=== PATIENT | male | born 1960 ===

== ENCOUNTER → 2020-04-08 14:00 | Outpatient (BNVA) | payer MEDICAID, SELFPAY | PROVIDERS: PCP Internal Medicine Geriatric Medicine; Referring Provider Internal Medicine Geriatric Medicine; Visit Provider Urology | DX: Z76.89 Persons encountering health services in other specified circumstances (principal) | CPT/HCPCS: 99202 ==

== ENCOUNTER → 2020-05-20 13:25 | Outpatient (BNVA) | payer MEDICAID, SELFPAY | PROVIDERS: PCP Internal Medicine Geriatric Medicine; Referring Provider Internal Medicine Geriatric Medicine; Visit Provider Nurse Practitioner | DX: Z76.89 Persons encountering health services in other specified circumstances (principal) ==

== ENCOUNTER → 2020-09-16 13:15 | Outpatient (BNVA) | payer MEDICAID, SELFPAY | PROVIDERS: PCP Internal Medicine Geriatric Medicine; Visit Provider Nurse Practitioner ==

== ENCOUNTER → 2022-01-28 14:04 | Outpatient (BNVA) | payer MEDICAID, SELFPAY | PROVIDERS: PCP Internal Medicine Geriatric Medicine; Visit Provider Urology | DX: R32 Unspecified urinary incontinence (principal); N52.9 Male erectile dysfunction, unspecified; N41.9 Inflammatory disease of prostate, unspecified | CPT/HCPCS: 51798; 99212 ==

== ENCOUNTER 2022-02-11 06:40 | Emergency (ER) | payer MEDICAID, SELFPAY ==
--- NOTE | ~2022-02-11 | CT_ITS ---
EXAMINATION: CT ABDOMEN AND PELVIS WITHOUT CONTRAST CLINICAL INFORMATION: Nausea and vomiting, distention and pain COMPARISON: Ultrasound 08/07/2017 TECHNIQUE: Multidetector volumetric imaging was performed from the superior aspect of the liver through the pubic symphysis. Sagittal and coronal reformatted images were obtained on the technologist's workstation. This CT examination was performed using dose optimization techniques as appropriate, variously including the following: *Automated exposure control *Adjustment of mA and/or kV according to patient size (this includes techniques or standardized protocols for targeted exams where dose is matched to indication/reason for exam; i.e. extremities or head) *Use of iterative reconstruction technique DLP: 497 mGy-cm FINDINGS: LUNG BASES: The visualized lung bases are unremarkable. LIVER, GALLBLADDER, AND BILIARY TREE: The liver is normal in size, shape, and attenuation. No focal hepatic lesion or biliary ductal dilatation is present. The gallbladder is unremarkable with no evidence of radiopaque gallstones, gallbladder wall thickening, or obvious pericholecystic inflammatory changes. PANCREAS: Unremarkable. SPLEEN: Incidental splenule. ADRENAL GLANDS: Unremarkable. KIDNEYS AND URETERS: The kidneys are normal in size, shape, and attenuation. No hydronephrosis, hydroureter, or calculi seen. No perinephric stranding. BLADDER: Unremarkable. GASTROINTESTINAL TRACT: The small and large bowel are notable for extensive diverticulosis without acute inflammatory changes. No obstruction. No fluid collections.. The appendix is unremarkable. ABDOMINAL WALL: No significant hernia is appreciated. Small fat-containing inguinal hernias bilaterally noted. LYMPH NODES: Normal. VASCULAR: Unremarkable. PELVIC VISCERA: Moderate prostamegaly. OSSEOUS STRUCTURES: Unremarkable. CT/CT abdomen pelvis wo IV con IMPRESSION: No significant abnormality. No obstruction. Fleischner guidelines were followed.
--- NOTE | 2022-02-11 06:44 | ECG_ITS ---
Test Reason : chest pain Blood Pressure : / mmHG Vent. Rate : 052 BPM Atrial Rate : 052 BPM P-R Int : 140 ms QRS Dur : 080 ms QT Int : 442 ms P-R-T Axes : 061 044 066 degrees QTc Int : 411 ms Sinus bradycardia Otherwise normal ECG When compared with ECG of 14-DEC-2018 12:22, Heart rate has decreased Referred By: Generic ED Physician Electronically Signed By:ZEYNEP TELLO
[2022-02-11 07:10] VITALS: BP 129/96; PULSE 59; RESP 19; TEMP 36.6; O2SAT 98; BMI 22.6
[2022-02-11 08:27] VITALS: BP 122/88; PULSE 58; RESP 17; TEMP 36.7; O2SAT 99
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
[2022-02-11] MEDS: 0.9 % Sodium Chloride 1,000 ML 999 ML IV (08:46)
[2022-02-11 08:47] LABS: MANUAL DIFF FLAG NO
[2022-02-11] MEDS: ondansetron HCL 4 MG/2 ML VIAL IVPUSH (08:47)
[2022-02-11] MEDS: Ketorolac Tromethamine 15 MG/ML VIAL 30 MG IVPUSH (08:47)
[2022-02-11 08:49] LABS: Basophils Percent Auto 0.4 % (0-2); Eosinophils Absolute Auto 0.2 X10*3/uL (0.0-0.4); Eosinophils Percent Auto 3.2 % (0-4); Imm Gran Abs Auto 0.04 X10*3/uL (0.00-0.03); Imm Gran Pct Auto 0.6 % (0.0-0.4); Lymphocytes Absolute Auto 2.3 X10*3/uL (1.2-4.9); Lymphocytes Percent Auto 31.7 % (20-40); Mean Corpuscular HGB Conc 32.5 g/dl (31.0-36.0); Mean Corpuscular Hemoglobin 25.7 pg (27.0-33.0); Mean Corpuscular Volume 79.1 fL (80.0-98.0); Mean Platelet Volume 10.1 fL (9.4-12.4); Monocytes Absolute Auto 0.6 X10*3/uL (0.1-1.2); Monocytes Percent Auto 8.8 % (2-11); Neutrophils Percent Auto 55.3 % (45-73); Platelet Count 213 X10*3/uL (160-400); Red Blood Count 5.06 X10*6/uL (4.60-5.80); Red Cell Distribution Width 12.7 % (11.0-16.0); White Blood Count 7.2 X10*3/uL (4.8-10.8)
[2022-02-11 08:59] LABS: Partial Thromboplastin Time 27.8 SEC (26.0-36.4)
[2022-02-11 09:08] LABS: Alanine Aminotransferase 66 U/L (0-40); Alkaline Phosphatase 99 U/L (39-117); Anion Gap 16 (12-20); Aspartate Amino Transferase 32 U/L (5-37); Bilirubin Total 0.3 mg/dL (0.0-1.0); Blood Urea Nitrogen 18 mg/dL (9-16); Calcium 8.9 mg/dL (8.4-10.2); Carbon Dioxide 23 mmol/L (22-29); Chloride 106 mmol/L (96-108); Creatinine Clr Calc Pharmacy 77.6; Estimated Glomerular Filt Rate > 60; Glucose Random 113 mg/dL (60-115); Lipase 37 U/L (8-78); Potassium 4.6 mmol/L (3.3-5.1); Sodium 140 mmol/L (135-145); Total Protein 6.7 g/dL (6.5-8.0)
[2022-02-11 10:10] VITALS: BP 115/75; PULSE 54; RESP 16; TEMP 36.3; O2SAT 100
[2022-02-11 10:41] LABS: Appearance Urine Clear; Color Urine Yellow; Glucose Urine UA Negative (Negative); Leukocyte Esterase Urine Trace (Negative); Nitrite Urine Negative (Negative); PH 5.5 (5.0-9.0); UMIC TRIGGER UACC YES; Urine Blood Negative (Negative); Urine Ketones Negative (Negative); Urine Protein Negative (Neg-Trace)
[2022-02-11 10:44] LABS: Bacteria Urine None Seen (None Seen); Hyaline Casts Urine 0-2 /LPF (0-2); RBC Urine 0-2 /HPF (0-2); Squamous Epithelial Cell Urine 0-2 /HPF (0-2); WBC Urine 0-5 /HPF (0-5)
== END 2022-02-11 11:18 | disposition home or self-care (01) ==
PROVIDERS: Emergency Provider Emergency Medicine Emergency Medical Services; PCP Internal Medicine Geriatric Medicine
DX: K21.00 Gastro-esophageal reflux disease with esophagitis, without bleeding (principal); K29.70 Gastritis, unspecified, without bleeding; R10.13 Epigastric pain; R11.2 Nausea with vomiting, unspecified
CPT/HCPCS: 36415; 74176; 80053; 81001; 83690; 85025; 85610; 85730; 93005; 96361; 96374; 96375; 99284; 99285; J1885; J2405

== ENCOUNTER 2023-06-22 10:26 | Outpatient (REF) | payer MEDICAID, SELFPAY ==
[2023-06-22 11:35] LABS: MANUAL DIFF FLAG NO
[2023-06-22 11:37] LABS: Basophils Absolute Auto 0.1 X10*3/uL (0.0-0.2); Basophils Percent Auto 0.8 % (0-2); Eosinophils Absolute Auto 0.1 X10*3/uL (0.0-0.4); Hematocrit 44.7 % (42.0-52.0); Hemoglobin 14.4 g/dl (14.0-18.0); Imm Gran Abs Auto 0.02 X10*3/uL (0.00-0.03); Imm Gran Pct Auto 0.3 % (0.0-0.4); Lymphocytes Absolute Auto 1.9 X10*3/uL (1.2-4.9); Lymphocytes Percent Auto 31.4 % (20-40); Mean Corpuscular HGB Conc 32.2 g/dl (31.0-36.0); Mean Corpuscular Volume 80.7 fL (80.0-98.0); Mean Platelet Volume 10.8 fL (9.4-12.4); Monocytes Absolute Auto 0.6 X10*3/uL (0.1-1.2); Monocytes Percent Auto 10.3 % (2-11); Neutrophils Absolute Auto 3.4 x10*3/uL (2.0-8.3); Neutrophils Percent Auto 55.2 % (45-73); Platelet Count 206 X10*3/uL (160-400); Red Blood Count 5.54 X10*6/uL (4.60-5.80); Red Cell Distribution Width 12.9 % (11.0-16.0); White Blood Count 6.1 X10*3/uL (4.8-10.8)
[2023-06-22 11:54] LABS: Alanine Aminotransferase 82 U/L (0-40); Albumin Level 4.5 g/dL (3.5-5.0); Alkaline Phosphatase 121 U/L (39-117); Anion Gap 14 (12-20); Aspartate Amino Transferase 27 U/L (5-37); Bilirubin Total 0.8 mg/dL (0.0-1.0); Blood Urea Nitrogen 17 mg/dL (9-16); Calcium 9.6 mg/dL (8.4-10.2); Carbon Dioxide 29 mmol/L (22-29); Chloride 101 mmol/L (96-108); Cholesterol 219 mg/dL (<200); Estimated Glomerular Filt Rate > 60; Glucose Random 93 mg/dL (60-115); HDL Cholesterol 45 mg/dL (>40); LDL Cholesterol Calculated 133 mg/dL (<100); Sodium 140 mmol/L (135-145); Total Protein 7.6 g/dL (6.5-8.0); Triglycerides 209 mg/dL (<150)
[2023-06-22 12:10] LABS: TSH reflex Free T4 1.95 uIU/mL (0.32-4.0)
== END 2023-06-22 10:27 | disposition home or self-care (01) ==
LOC: HO.HHCL 10:26
PROVIDERS: Visit Provider Internal Medicine Geriatric Medicine
DX: R63.4 Abnormal weight loss (principal); Z79.899 Other long term (current) drug therapy
CPT/HCPCS: 36415; 80053; 80061; 84443; 85025

== ENCOUNTER 2023-10-06 10:36 | Outpatient (REF) | payer MEDICAID, SELFPAY ==
[2023-10-06 12:28] LABS: Alanine Aminotransferase 40 U/L (0-40); Albumin Level 4.4 g/dL (3.5-5.0); Alkaline Phosphatase 101 U/L (39-117); Anion Gap 15 (12-20); Aspartate Amino Transferase 24 U/L (5-37); Bilirubin Total 0.7 mg/dL (0.0-1.0); Blood Urea Nitrogen 14 mg/dL (9-16); Calcium 9.8 mg/dL (8.4-10.2); Carbon Dioxide 25 mmol/L (22-29); Chloride 104 mmol/L (96-108); Estimated Glomerular Filt Rate > 60; Glucose Random 98 mg/dL (60-115); Potassium 4.1 mmol/L (3.3-5.1); Sodium 140 mmol/L (135-145); Total Protein 7.7 g/dL (6.5-8.0)
[2023-10-06 12:30] LABS: Prostate Specific Antigen 4.96 ng/mL (<0.05-4.0)
[2023-10-09 08:28] LABS: HBS Num1 16.27 mIU/mL (0-7.99); HBc Num1 0.06 S/CO (0.00-0.79); HBsAGNum1 0.29 S/CO (0.00-0.99); Hepatitis B Core Antibody Nonreactive (Nonreactive); Hepatitis B Surface Antigen Negative (Negative); ~HepC Num1 0.15 S/CO (0.00-0.79); ~Hepatitis B Surface Antibody REACTIVE (Nonreactive); ~Hepatitis C Antibody Nonreactive (Nonreactive)
[2023-10-09 08:46] LABS: Hepatitis A Antibody IgG REACTIVE (Nonreactive); ~Hepatitis A Antibody IgG 4.13 S/CO (0.00-0.99)
== END 2023-10-06 10:37 | disposition home or self-care (01) ==
LOC: HO.HHCL 10:36
PROVIDERS: Visit Provider Internal Medicine Geriatric Medicine
DX: N40.1 Benign prostatic hyperplasia with lower urinary tract symptoms (principal); R35.1 Nocturia; R74.01 Elevation of levels of liver transaminase levels
CPT/HCPCS: 36415; 80053; 84153; 86704; 86706; 86708; 86803; 87340

== ENCOUNTER 2024-03-04 18:19 | Outpatient (REF) | payer MEDICAID, SELFPAY ==
[2024-03-04 18:24] LABS: Appearance Urine Clear; Color Urine Yellow; Glucose Urine UA Negative (Negative); Leukocyte Esterase Urine Negative (Negative); Nitrite Urine Negative (Negative); PH 7.5 (5.0-9.0); Urine Blood Negative (Negative); Urine Ketones Negative (Negative); Urine Protein Negative (Neg-Trace)
[2024-03-04 18:30] LABS: Bacteria Urine None Seen (None Seen); Hyaline Casts Urine 0-2 /LPF (0-2); RBC Urine 0-2 /HPF (0-2); Squamous Epithelial Cell Urine 0-2 /HPF (0-2); WBC Urine 0-5 /HPF (0-5)
== END 2024-03-04 18:20 | disposition home or self-care (01) ==
LOC: HO.HHCLNP 18:19
PROVIDERS: Visit Provider Internal Medicine
DX: R39.9 Unspecified symptoms and signs involving the genitourinary system (principal)
CPT/HCPCS: 81001

== ENCOUNTER 2024-04-18 08:34 | Outpatient (REF) | payer MEDICAID, SELFPAY ==
[2024-04-18 11:56] LABS: Prostate Specific Antigen 5.82 ng/mL (<0.05-4.0)
== END 2024-04-18 08:35 | disposition home or self-care (01) ==
LOC: HO.HHCL 08:34
PROVIDERS: Visit Provider Internal Medicine Geriatric Medicine
DX: Z12.5 Encounter for screening for malignant neoplasm of prostate (principal); R97.20 Elevated prostate specific antigen [PSA]
CPT/HCPCS: 36415; 84153

== ENCOUNTER 2024-05-01 14:37 | Outpatient (AMB) | payer MEDICAID, SELFPAY ==
--- NOTE | 2024-05-01 15:15 | A.OFFVIS_ITS ---
Intake Visit Reasons: Elevated PSA Intake Note: Patient is present for ELEVATED PSA Urology Medication:NONE Antibiotic Allergy:NONE Blood Thinner:NONE Lace Finisher Required: No Allergies No Known Allergies Allergy (Verified 05/01/24 15:15) HPI Comments Details: Jonathan is a pleasant male. He is a patient of Dr. Simeon. He presents for the following urologic issues - increasing incontinence - pelvic pressure - erectile dysfunction Khmer translation provided by qualified medical information specialist Continue good effect from tadalafil Recent elevated PSA 04/21 5.8 Known prior prostatitis Feels he has recurrent symptoms Prostatitis medications provided Four month follow-up repeat PSA Prostatitis Pelvic pressure 03/2020 TABITHA soft boggy prostate consistent with prostatitis Prescriptions provided for management Erectile dysfunction Able to obtain but could not maintain erection Failed on demand medications None known trial of daily tadalafil PFSH Surgical History History of esophagogastroduodenoscopy (EGD) History of surgery of head Hx of colonoscopy Family History Father Cancer Mother Cancer Social History Household Members: Spouse and Children Alcohol intake: current Alcohol intake frequency: does not drink Current occupational status: disabled Review of Systems Const Denies chills and Denies fever(s) Card Reports no additional complaints and Denies syncope Resp Denies cough GI Denies abdominal pain and Denies heartburn Reports as per HPI and Denies change in libido Neuro Denies syncope Psych Denies change in libido Endo Denies change in libido Physical Exam Const General: cooperative, healthy appearing, comfortable and no acute distress Orientation/consciousness: patient oriented x3 HEENT Face and sinus: Yes normal facial exam Mouth: moist mucous membranes Neck Neck: Yes normal visual inspection, Yes full ROM and Yes trachea midline Chest Chest palpation & inspection: normal inspection of the chest Resp Effort & Inspection: normal respiratory effort, able to speak in complete sentences and no respiratory distress GI Inspection: Yes normal to inspection Back/Spine/Pelvis Cervical Spine: normal cervical lordosis Thoracic/Lumbar Spine: thoracic and lumbar spine normal to inspection Skin General skin exam: no rashes or lesions noted Neuro General: patient oriented x3, gait normal, tone normal and moves all extremities Extrem General: Yes normal to inspection and Yes capillary refill normal Assessment & Plan Assessment & Plan (1) Prostatitis: Code(s): N41.9 - Inflammatory disease of prostate, unspecified Category: Medical (2) Erectile dysfunction: Code(s): N52.9 - Male erectile dysfunction, unspecified Category: Medical Plan Four month follow-up PSA office Treat for prostatitis Refill of erectile dysfunction medications Orders: Orders PSA,Total (Free>4and<10) 4 Months N41.9 - Inflammatory disease of prostate, unspecified Medications: New sildenafil administer 60 minutes before intended activity 100 mg PO ONCE 30 days PRN 30 tabs 1RF sexual activity E11.69 - Type 2 diabetes mellitus with other specified complication, N52.1 - Erectile dysfunction due to diseases classified elsewhere, N52.9 - Male erectile dysfunction, unspecified Patient Instructions: Imaging studies, laboratory and physical exam results were discussed and reviewed in detail. No major barriers to patient understanding were identified. An opportunity to ask questions regarding the treatment plan was provided. All questions were answered. The patient expressed understanding and agreement with the above treatment plan. The patient is aware they should contact our office by phone for worsening of their current condition or the appearance of new urologic symptoms. Compliance is encouraged with any medications and followup testing that is ordered. It is a privilege to participate in the urologic care of your patient. If you have any questions or concerns regarding treatment for the above conditions, or other urologic issues, please do not hesitate to contact me. The office telephone contact is [phone]. This note is constructed using voice recognition software. While every effort has been made to ensure accuracy dental technician instructor errors may have been included. Yours sincerely, Dr Devin Baxter MD, [facility] - Urology Providers of Expert, Compassionate Care for the Genitourinary System Coding Level of Care Code Est Pt Level 4 (40817) Diagnoses Prostatitis N41.9 Erectile dysfunction N52.9
== END 2024-05-01 16:00 | disposition home or self-care (01) ==
PROVIDERS: PCP Internal Medicine Geriatric Medicine; Visit Provider Urology
DX: N41.9 Inflammatory disease of prostate, unspecified (principal); N52.9 Male erectile dysfunction, unspecified
CPT/HCPCS: 99214

== ENCOUNTER → 2024-05-01 14:37 | Outpatient (BNVA) | payer MEDICAID, SELFPAY | PROVIDERS: PCP Internal Medicine Geriatric Medicine; Visit Provider Urology | DX: N41.9 Inflammatory disease of prostate, unspecified (principal); N52.9 Male erectile dysfunction, unspecified | CPT/HCPCS: 99212 ==

== ENCOUNTER 2024-09-18 11:25 | Outpatient (REF) | payer MEDICAID, SELFPAY ==
--- OUTSIDE RECORDS SUMMARY | 2024-09-18 13:47 | XMS_ITS | Encounter Summary ---
Author Organization [facility] Address [address] [place] [address] Care Team Providers Care Certification And Selection Specialist Name Role Phone Name, Clayton NUNEZ Primary Care Provider [phone] Encounter Details Date Type Department Care Team ([facility] Contact Info) Description 06/20/2022 Orders Only [facility] [address] [place], [place] [phone] Linda Mendoza LPN Social History Tobacco Use Types Packs/Day Years Used Date Smoking Tobacco: Never Smokeless Tobacco: Never Depression Answer Date Recorded Patient Health Questionnaire-2 Score 2 06/15/2022 Sex and Gender Information Value Date Recorded Sex Assigned at Male 03/28/2022 10:17 AM EDT Legal Sex Male 10:17 AM EDT Gender Identity Male 03/28/2022 10:17 AM EDT Sexual Orientation Choose not to disclose 2021 10:17 AM EDT COVID-19 Exposure Response Date Recorded In the last 10 days, have yo u been in contact with someone who was confirmed or suspected to have Coronavirus/COVID-19? No / Unsure 06/15/2022 9:42 AM EST documented as of this encounter Plan of Treatment Upcoming Encounters Date Type Department Care Team ([facility] Contact Info) Description 11/13/2024 2:00 PM EDT Office Visit [facility]OM[facility] [address] [place], [place] [phone] Kyra Roldan, OD [address] [place] [address] documented as of this encounter Visit Diagnoses Not on filedocumented in this encounter Care Teams Certification And Selection Specialist Relationship Specialty Start Date End Date Name, MD Clayton [address] [place] [address] PCP - General Family Medicine 01/12/16 documented as of this encounter
--- OUTSIDE RECORDS SUMMARY | 2024-09-18 13:47 | XMS_ITS | Encounter Summary ---
Author Organization [employer] Address [address] [place] [address] Care Team Providers Care Termite Technician Name Role Phone Name, Clayton NUNEZ Primary Care Provider [phone] Reason for Visit * Reason Comments Med Refill Encounter Details Date Type Department Care Team ([facility] Contact Info) Description 05/20/2023 Refill [facility] [address] [place], [place] [phone] Name, MD Clayton [address] [place] [address] Social History Tobacco Use Types Packs/Day Years Used Date Smoking Tobacco: Never Smokeless Tobacco: Never Alcohol Use Standard Drinks/Week Comments Never 0 (1 standard drink = 0.6 oz pur e alcohol) Housing Stability Answer Date Recorded What is your housing situation today? I have jazielleeanna zepeda 03/21/[address] you li ve. Do you have problems with any of the following? None of the above 03/21/2023 Food Insecurity Answer Date Recorded Within the past 12 months, y ou worried that your food would run out before you got money to buy more: Never True 03/21/2023 Within the past 12 months,th e food you bought just didn't last and you didn't have enough money to get more: Never True Transportation Answer Date Recorded In the past 12 months, has l ack of transportation kept you from medical appts, meetings, work or from getting things needed for daily living? No 03/21/2023 Utilities Answer Date Recorded In the past 12 months, has t he electric, gas, oil or water company threatened to shut off services in your home? No 03/21/2023 Depression Answer Date Recorded Patient Health Questionnaire-2 Score 2 06/15/2022 Sex and Gender Information Value Date Recorded Sex Assigned at Male 03/28/2022 10:17 AM EDT Legal Sex Male 10:17 AM EDT Gender Identity Male 03/28/2022 10:17 AM EDT Sexual Orientation Choose not to disclose 2021 10:17 AM EDT documented as of this encounter Plan of Treatment Upcoming Encounters Date Type Department Care Team (Late st Contact Info) Description 11/13/2024 2:00 PM EDT Office Visit [facility] [address] [place], [place] [phone] Kyra Roldan, OD [address] [place] [address] documented as of this encounter Visit Diagnoses Not on filedocumented in this encounter Care Teams Termite Technician Relationship Specialty Start Date End Date Name, MD Clayton [address] [place] [id number] PCP - General Family Medicine 01/12/16 documented as of this encounter
--- OUTSIDE RECORDS SUMMARY | 2024-09-18 13:47 | XMS_ITS | Clinical Summary ---
Author Organization [employer] Address [address] [address] [facility] [address] [place] [address] Care Team Providers Care Environmental Studies Department Chair Name Role Phone Name, Clayton NUNEZ Primary Care Provider [phone] Allergies No known active allergies Medications Gaviscon Extra Strength 254-237.5 MG/5ML suspension TAKE 10 ML BY MOUTH FOUR TIMES DAILY NEEDED FOR HEARTBURN 2 Active buPROPion XL (Wellbutrin XL) 150 MG 24 hr tablet Take 150 mg by mouth in the morning. 2 Active mirtazapine (Remeron) 15 MG tablet Take 15 mg by mouth at bedtime. 2 Active perphenazine 4 MG tablet Take 4 mg by mouth in the morning. 2 Active sucralfate (Carafate) 1 GM/10ML suspension Take 10 mL by mouth every 6 (six) hours. 1 Active tamsulosin (Flomax) 0.4 MG 24 hr capsule TAKE 1 CAPSULE BY MOUTH DAILY 30 MINUTES AFTER THE SAME MEAL EVERY DAY 2 Active zolpidem (Ambien) 10 MG tablet Take 10 mg by mouth if needed at bedtime. 2 Active Pain Relief Extra Strength 500 MG tabletIndication s:Chronic low back pain, unspecified back pain laterality, unspecified whether sciatica present TAKE 1 OR 2 TABLETS BY MOUTH EVERY 6 HOURS NEEDED 100 tablet 2 3 Active polyethylene glycol, PEG, 3350 (GaviLAX) 17 GM/SCOOP powder MIX 17 GRAMS WITH WATER OR JUGO DE NARANJA AND DRINK THREE TIMES DAILY 510 g 2 3 Active omeprazole (PriLOSEC) [address] Fleming ns:Gastroesophag eal reflux disease, unspecified whether esophagitis present TAKE 1 CAPSULE BY MOUTH ONCE DAILY BEFORE A MEAL. 90 capsule 3 4 Active famotidine (Pepcid) 20 MG tabletIndication s:Gastroesophage al reflux disease, unspecified whether esophagitis present TAKE 1 TABLET BY MOUTH TWICE DAILY 180 tablet 3 4 Active loratadine (Claritin) 10 MG tablet Take 1 tablet (10 mg) by mouth Once per day. 30 tablet 4 Active fluticasone (Flonase) 50 MCG/ACT nasal spray ADMINISTER 2 SPRAYS INTO EACH NOSTRIL ONCE A DAY. SHAKE GENTLY. BEFORE FIRST USE PRIME PUMP. AFTER USE, CLEAN TIP AND REPLACE CAP. 48 g 4 Active Viagra 100 MG tablet TAKE 1 TABLET 1 HOUR BEFORE SEXUAL RELATIONS ONCE DAILY NEEDED. 10 tablet 1 4 Active atorvastatin (Lipitor) 20 MG tablet TAKE 1 TABLET BY MOUTH EVERY MORNING 90 tablet 3 4 Active nabumetone (Relafen) 500 MG tablet TAKE 1 TABLET BY MOUTH TWICE DAILY 60 tablet 1 5 Active Active Problems Problem Noted Date Diagnosed Date Foreign body sensation, right eye 03/04/2024 UTI symptoms 03/04/2024 Assessment & Plan (03/04/2024 1:56 PM EDT): UA and culture I will treat empirically with macrobid 100mg BID for 7 days Family history of prostate cancer 10/05/2023 Erectile dysfunction 06/15/2022 Gastro-esophageal reflux disease with esophagiti s 06/15/2022 Overview (06/21/2023): negative work up in the past including EGD and Barium swallow. EGD done [address] Leiva showed: POSTOPERATIVE DIAGNOSIS: Suggestion of esophageal spasm, question distal esophageal erythema versus grade 1 distal esophagitis. Biopsy showed in 2019: Esophagus, distal, biopsies: Squamous epithelium with mild reactive changes suggestive of chronic reflux. Pain in both testicles 06/15/2022 Pain in penis 06/15/2022 Benign prostatic hyperplasia 06/22/2018 Assessment & Plan (03/04/2024 1:57 PM EDT): I will refer patient to urology Anxiety 03/21/2017 Idiopathic scoliosis 03/21/2017 Chronic low back pain 01/27/2017 Pityriasis versicolor 01/12/2016 Impaired fasting glucose 02/29/2012 Vitamin D deficiency 02/29/2012 Severe recurrent major depressive disorder with psychosis 02/29/2012 Resolved Problems Problem Noted Date Diagnosed Date Resolved Date Dysphagia 01/27/2017 06/21/2023 Gastroesophageal reflux disease 02/29/2012 06/21/2023 Encounters Date Type Department Care Team Description 09/06/2024 10:30 AM EDT Office Visit [facility] [address] [place] [address] Clayton Simeon MD PE (physical exam), routine (Primary Dx); Elevated prostate specific antigen less than 10 ng/ml; High cholesterol; Screening for colon cancer; Blurred vision, bilateral; Encounter for immunization 09/06/2024 Telephone [facility] OPT[facility] [address] [place] [address] Kyra Roldan OD 09/06/2024 Travel 09/05/2024 Telephone [facility] [address] [place] [address] Mallory Mobley MA chartprep 08/30/2024 Patient Outreach [facility] [address] [place], [place] [phone] Clayton Simeon MD Pre-visit Planning (SDOH unable to reach LV ) 08/29/2024 Telephone [facility] [address] [place] [address] Clayton Simeon MD Lab Orders 08/09/2024 Population Health Risk Score [facility] [address] [phone] Provider, Population Health Generic 06/22/2024 Refill [facility] [address] [place] [address] Clayton Simeon MD from Last 3 Months Immunizations Name Administration Dates Next Due Hep A, Adult 09/25/2007,05/02/2007 Hep B, adult 05/08/2015, 5,02/04/2015,2007,09/25/2007,04/29/2007 Influenza injectable quadriv alent IIV4 with preservative 03/21/2017 Influenza injectable quadriv alent preservative free 04/11/2023,02/23/2022,06/22/2018 Influenza, IIV3, injectable 02/06/2014, 1 Influenza, Split (incl. rossy fied surface antigen) 05/10/2013,02/29/2012 Influenza, seasonal, injecta ble, preservative free 04/17/2024 Pfizer Covid-19 Vaccine 12+ 04/17/2024 Pneumococcal Conjugate PCV 20 09/06/2024 TD (adult), 2 Lf tetanus tox oid, preservative free, adsorbed 09/06/2005 Tdap 09/06/2024,09/08/2014 Social History Tobacco Use Types Packs/Day Years Used Date Smoking Tobacco: Never Smokeless Tobacco: Never Tobacco Cessation:Counseling Given: Not Answered Alcohol Use Standard Drinks/Week Comments Never 0 (1 standard drink = 0.6 oz pur e alcohol) Depression Answer Date Recorded Patient Health Questionnaire-9 Score 9 09/06/2024 Patient Health Questionnaire-9 Score 9 09/06/2024 Last PHQ-9: Questionnaire Data Not on file 0 09/06/2024 Housing Stability Answer Date Recorded What is your housing situation today? I have jaziel zepeda 09/06/[address] you li ve. Do you have problems with any of the following? None of the above 09/06/2024 Food Insecurity Answer Date Recorded Within the past 12 months, y ou worried that your food would run out before you got money to buy more: Never True 09/06/2024 Within the past 12 months,th e food you bought just didn't last and you didn't have enough money to get more: Never True 03/2025 Transportation Answer Date Recorded In the past 12 months, has l ack of transportation kept you from medical appts, meetings, work or from getting things needed for daily living? No 09/06/2024 Utilities Answer Date Recorded In the past 12 months, has t he electric, gas, oil or water company threatened to shut off services in your home? No 09/06/2024 Depression Answer Date Recorded Patient Health Questionnaire-2 Score 2 09/06/2024 Internet Access Answer Date Recorded Internet Access Q1 Yes 09/06/2024 Internet Access Q2 Not on file 09/06/2024 Sex and Gender Information Value Date Recorded Sex Assigned at Male 03/28/2022 10:17 AM EDT Legal Sex Male 10:17 AM EDT Gender Identity Male 03/28/2022 10:17 AM EDT Sexual Orientation Choose not to disclose 2021 10:17 AM EDT Last Filed Vital Signs Vital Sign Reading Time Taken Comments Blood Pressure 125/80 09/06/2024 10:53 AM EDT Pulse 68 09/06/2024 10:53 AM EDT Temperature 36.4 ??C (97.6 ??F) 09/06/2024 10:53 AM E DT Respiratory Rate 20 09/06/2024 10:53 AM EDT Oxygen Saturation 99% 09/06/2024 10:53 AM EDT Inhaled Oxygen Concentration - - Weight 72.6 kg (160 lb) 09/06/2024 10:53 AM EDT Height 167.6 cm (5' 6 ) 09/06/2024 10:53 AM EDT Body Mass Index 25.82 09/06/2024 10:53 AM EDT Plan of Treatment Upcoming Encounters Date Type Department Care Team (Late st Contact Info) Description 11/13/2024 2:00 PM EDT Office Visit [facility] [address] [place] [address] TarkaKyra, OD [address] [place] [address] Health Maintenance Due Date Last Done Comments CT Colonography 1962 Dental Prophylaxis 1962 Dental X-Ray: Bitewings 1962 FIT DNA/Cologuard 1962 FIT 1962 FOBT 1962 Sigmoidoscopy 1962 Zoster Vaccines (1 of 2) 2012 Colonoscopy 09/24/2022 09/24/2012 Colorectal Cancer Screening 09/24/2022 Dental Oral Exam 04/20/2024 10/18/2023, 08/17/2015 Alcohol/Substance Use Screening 09/06/2025 09/06/2024 Depression Screening 09/06/2025 09/06/2024, 09/07/19 SDOH Screening 09/06/2025 09/06/2024 Tobacco Screening 09/06/2025 09/06/2024 Dental X-Ray: Full Mouth 10/18/2026 10/18/2023, 07/28 Lipid Panel 06/22/2028 06/22/2023, 10/31/2022 DTaP/Tdap/Td Vaccines (3 - Td or Tdap) 09/06/2034 09/06/2024, 09/08/2014, 09/06/2005 RSV Patients and Patients Aged 60 years or older (1 - 1-dose 75+ series) 2037 Hepatitis A Vaccines Aged Out 09/25/2007, 05/02/20 07 No longer eligible based on patient's age to complete this topic HIV Screening Completed 09/08/2014 Hepatitis B Vaccines Completed 05/08/2015, 03/05/2015, 02/04/2015, Additional history exists Hepatitis C Screening Completed 10/06/2023, 015 COVID-19 Vaccine Completed 04/17/2024, , 09/05/2020 Influenza Vaccine Completed 04/17/2024, , 02/23/2022, Additional history exists Pneumococcal Vaccine: 50+ Years Completed 09/06/2024 HIB Vaccines Aged Out No longer eligi ble based on patient's age to complete this topic HPV Vaccines Aged Out No longer eligi ble based on patient's age to complete this topic IPV Vaccines Aged Out No longer eligi ble based on patient's age to complete this topic Meningococcal Vaccine Aged Out No emir pipe eligible based on patient's age to complete this topic RSV under 20 months Aged Out No longe r eligible based on patient's age to complete this topic Rotavirus Vaccines Aged Out No longer eligible based on patient's age to complete this topic Procedures Procedure Name Priority Date/Time Associated Diagnosis Comments PANORAMIC RADIOGRAPHIC IMAGE Routine 10/18/2023 8:00 AM EDT PERIODIC ORAL EVALUATION - ESTABLISHED PATIENT Routine 10/18/2023 8:00 AM EDT HEPATITIS C AB W/REFL TO HCV RNA, QN, PCR Routine 10/06/2023 10:45 AM EDT Transaminitis LIPID PANEL, STANDARD Routine 06/22/2023 10:30 AM EST On statin therapy HIV 1/2 ANTIGEN AND ANTIBODY Routine 09/08/2014 COLONOSCOPY Routine 09/24/2012 from Last 3 Months or Most Recently Relevant to Health Maintenance Results * Hepatitis C Antibody with Reflex to HCV, RNA, Quantitative, Real-Time PCR (10/06/2023 10:45 AM EDT) Hepatitis C Antibody Nonreactive Nonreactive [facility] Comment:Antibodies to HCV no t detected; does not exclude early acuteHCV infection. Blood Venous blood specimen / Unknown 10/06/2023 10:45 AM EDT 10/06/2023 11:26 AM EDT us Clayton Simeon MD LAB BLOOD ORDERABLES Final Resul t [facility] [address] [place] [phone] * (ABNORMAL) Lipid Panel, Standard (06/22/2023 10:30 AM EST) Triglycerides 209(H) <150 mg/dL [facility] Comment:Desirable Triglyceri de: less than 150 mg/dLBorderline High Triglyceride 150-199 mg/dLHigh Triglyceride: 200-499 mg/dLVery High Triglyceride: greater than or equal to 5OO mg/dL Cholesterol 219(H) <200 mg/dL [facility] Comment:Desirable Cholestero l: less than 200 mg/dLBorderline High Cholesterol: 200-239 mg/dLHigh Cholesterol: greater than 239 mg/dL LDL Cholesterol Calculated 133(H) <100 mg/dL [facility] Comment:Desirable LDL: less than 100 mg/dLNear Optimal/Above Optimal LDL: 110- 129 mg/dLBorderline High LDL: 130-159 mg/dLHigh LDL: 160-189 mg/dLVery High LDL: greater than or equal to 190 mg/dL HDL Cholesterol 45 >40 mg/dL [facility] Comment:Desirable HDL: great er than 40 mg/dL Note: This HDL assay may give artificially low results in patients with liver disease. Blood Venous blood specimen / Unknown 06/22/2023 10:30 AM EST 06/22/2023 11:29 AM EST us Clayton Simeon MD LAB BLOOD ORDERABLES Final Resul t [facility] [address] [place] [address] [phone] * HIV 1/2 Antigen and Antibody (09/08/2014) HIV Ag/Ab Nonreactive us Clayton Simeon MD HEALTH MAINTENANCE Final Result * Colonoscopy (09/24/2012) [address] [facility] Provider HEALTH MAINTENANCE Final Result from Last 3 Months or Most Recently Relevant to Health Maintenance Insurance [facility] C[facility] MEDICAID STAND ADULT Care Teams Environmental Studies Department Chair Relationship Specialty Start Date End Date Name, MD Clayton [address] [place], [place] [phone] PCP - General Family Medicine 01/12/16
[2024-09-18 14:09] LABS: PSA,Total (Free>4and<10) 7.83 ng/mL (0.00-4.00)
[2024-09-18 14:11] LABS: Alanine Aminotransferase 42 U/L (0-40); Albumin Level 4.3 g/dL (3.5-5.0); Alkaline Phosphatase 99 U/L (39-117); Anion Gap 9 (12-20); Aspartate Amino Transferase 23 U/L (5-37); Bilirubin Total 0.5 mg/dL (0.0-1.0); Blood Urea Nitrogen 20 mg/dL (9-16); Calcium 9.6 mg/dL (8.4-10.2); Carbon Dioxide 27 mmol/L (22-29); Chloride 106 mmol/L (96-108); Cholesterol 164 mg/dL (<200); Estimated Glomerular Filt Rate > 60; Glucose Random 90 mg/dL (60-115); HDL Cholesterol 34 mg/dL (>40); LDL Cholesterol Calculated 94 mg/dL (<100); Potassium 4.1 mmol/L (3.3-5.1); Sodium 138 mmol/L (135-145); Total Protein 7.3 g/dL (6.5-8.0); Triglycerides 181 mg/dL (<150)
[2024-09-19 10:19] LABS: Free Prostate Spec Ag 0.9 ng/mL; Percent Free Prostate Spec Ag 14 % (calc) (>25); Prostate Specific Ag Total 6.5 ng/mL (< OR = 4.0)
== END 2024-09-18 11:26 | disposition home or self-care (01) ==
LOC: HO.HHCL 11:25
PROVIDERS: Urology; Visit Provider Internal Medicine Geriatric Medicine
DX: Z00.00 Encounter for general adult medical examination without abnormal findings (principal); R97.20 Elevated prostate specific antigen [PSA]; E78.00 Pure hypercholesterolemia, unspecified; Z12.11 Encounter for screening for malignant neoplasm of colon; H53.8 Other visual disturbances; N41.9 Inflammatory disease of prostate, unspecified; Z23 Encounter for immunization
CPT/HCPCS: 36415; 80053; 80061; 84153; 84154

== ENCOUNTER 2024-11-01 11:12 | Outpatient (AMB) | payer MEDICAID, SELFPAY ==
--- NOTE | 2024-11-01 11:12 | A.OFFVIS_ITS ---
Intake Visit Reasons: 4 month follow up/ PSA Intake Note: Patient is present for 4m PSA Urology Medication:Sildenafil, Tadalafil Antibiotic Allergy:NONE Blood Thinner:NONE Correctional Supervisor Lieutenant Required: Yes Allergies No Known Allergies Allergy (Verified 11/01/24 11:13) Medication List - Last Reconciled 11/01/24 by Devin Baxter MD aluminum hydrox-magnesium carb 254-237.5 mg/5 mL (Gaviscon Extra Strength) 10 mL PO QID perphenazine 4 mg PO BID sildenafil 100 mg PO ONCE PRN 30 days tadalafil 5 mg PO DAILY 90 days HPI Comments Details: Jonathan is a pleasant male. He is a patient of Dr. Simeon. He presents for the following urologic issues - increasing incontinence - pelvic pressure - erectile dysfunction Telemedicine Evaluation 15 min Consultation [employer]har[employer] Video Wolof translation provided by qualified medical administrative specialist Repeat PSA elevated 6.5 free 14% PCPT 10% risk high-grade prostate cancer Recommend prostate biopsy Prostatitis Pelvic pressure 03/2020 TABITHA soft boggy prostate consistent with prostatitis Prescriptions provided for management PSA 04/21 5.8, 09/20 6.5 14% Erectile dysfunction Able to obtain but could not maintain erection Failed on demand medications None known trial of daily tadalafil PFSH Surgical History History of esophagogastroduodenoscopy (EGD) Hx of colonoscopy History of surgery of head Family History Father Cancer Mother Cancer Social History Household Members: Spouse and Children Alcohol intake: current Alcohol intake frequency: does not drink Current occupational status: disabled Review of Systems Const All systems reviewed & are unremarkable except as noted in HPI and below Reports no additional complaints Resp Reports no additional complaints GI Reports no additional complaints Reports as per HPI Musc Reports no additional complaints Physical Exam Telemedicine evaluation Appropriate responses Regular breathing rate and rhythm HEENT Head: Yes normal to inspection Ears: hearing grossly normal bilaterally Eyes General: appearance normal, both eyes and all related structures Neck Neck: Yes normal visual inspection Chest Chest palpation & inspection: normal inspection of the chest Resp Effort & Inspection: normal respiratory effort and able to speak in complete sentences Telehealth Telehealth Telehealth Platform: Telephone Location of provider rendering services: practice address Location of patient: address on file Patient Identification confirmed using: Name, : Yes Telehealth method: voice only Patient verbally consented to treatment: Yes Patient verbally consented to billing insurance company: Yes Patient informed of any privacy concerns related to visit: Yes Assessment & Plan Assessment & Plan (1) Erectile dysfunction: Code(s): N52.9 - Male erectile dysfunction, unspecified Category: Medical (2) Elevated PSA: Code(s): R97.20 - Elevated prostate specific antigen [PSA] Category: Medical Plan Risks and benefits regarding trans rectal ultrasound with prostate biopsy were discussed. Options of continued surveillance, no treatment and biopsy were offered. The risks include but are not limited to, urinary tract infection, sepsis, difficulty urinating, bleeding into the rectum or bladder that requires intervention and transfusion,and failure to diagnose prostate cancer. The patient understands the options and the risks involved. They wish to proceed. Printed information was provided to ensure he remains off anticoagulation for the appropriate length of time. He may require cardiology or PCP clearance. An antibiotic will be administered prior to, and following the procedure Medications: New levofloxacin take 1 tablet day before procedure, 1 tablet day of procedure and 1 tablet day after procedure 500 mg PO DAILY 3 days 3 tabs 0RF Patient Instructions: This note is constructed using voice recognition software. While every effort has been made to ensure accuracy pathology secretary/transcriptionist errors may have been included. Imaging studies, laboratory and physical exam results were discussed and reviewed in detail. No major barriers to patient understanding were identified. An opportunity to ask questions regarding the treatment plan was provided. All questions were answered. The patient expressed understanding and agreement with the above treatment plan. The patient is aware they should contact our office by phone for worsening of their current condition or the appearance of new urologic symptoms. Compliance is encouraged with any medications and followup testing that is ordered. It is a privilege to participate in the urologic care of your patient. If you have any questions or concerns regarding treatment for the above conditions, or other urologic issues, please do not hesitate to contact me. The office telephone contact is [phone]. Sincerely, Dr Devin Baxter MD, [facility] - Urology Compassionate Specialist Care for the Genitourinary System Coding Level of Care Code Tele Est Pt Level 4 (33412) Diagnoses Erectile dysfunction N52.9 Elevated PSA R97.20
== END 2024-11-01 13:52 | disposition home or self-care (01) ==
LOC: HO.HUSH 11:12
PROVIDERS: PCP Internal Medicine Geriatric Medicine; Visit Provider Urology
DX: N52.9 Male erectile dysfunction, unspecified (principal); R97.20 Elevated prostate specific antigen [PSA]
CPT/HCPCS: 99214

== ENCOUNTER → 2024-11-01 11:12 | Outpatient (BNVA) | payer MEDICAID, SELFPAY | PROVIDERS: PCP Internal Medicine Geriatric Medicine; Visit Provider Urology ==

== ENCOUNTER 2024-11-14 06:51 | Outpatient (REF) | payer MEDICAID, SELFPAY ==
--- NOTE | 2024-11-14 08:26 | W.PM.OPN ---
Operative Note Operative Note Date of Service: 11/14/24 Narrative: Preoperative diagnosis: Elevated PSA Postoperative diagnosis: Elevated PSA Procedure: 1. transrectal ultrasound measurement of prostate 2. transrectal ultrasound-guided pudendal nerve block 3. transrectal ultrasound-guided prostate biopsy 12 core Surgeon: Dr. Devin Baxter Anesthetic: 10cc 1% lidocaine Indications for procedure: Elevated PSA - 7.8 Counselling: Technical aspects, risks and benefits of proposed procedure were discussed in full. All questions have been answered, written consent has been obtained and patient agrees to proceed. Procedure: The patient was brought into the procedure area and placed in a left lateral decubitus position. Patient identity confirmed. Perioperative antibiotics confirmed. Safety pause time out performed. TABITHA was performed to dilate rectal sphincter Iodine 10cc with 60 cc gel was placed per rectum to reduce infection risk using a catheter tip syringe. 8 Hz Lauren rectal end-fire ultrasound probe was placed transrectally without difficulty. The prostate was visualized. Seminal vesicles were normal. Prostate margins were clearly demarcated. Bladder was seen superiorly. No cystic structures were noted No calcifications were noted at the surgical margin The prostate was otherwise homogeneous in nature The prostate was measured in 3 dimensions Prostatic Width: 4.9 cm Prostatic Height: 3.2 cm Urethral Length: 4.1 cm Total volume equals : 35 ml An ultrasound-guided pudendal nerve block was performed using a 22 gauge spinal needle in the sagittal plane. 4 cc of 1% lidocaine placed at the junction of each seminal vesicle and 2 cc placed at the apex of the prostate. A 12 core biopsy was performed with 6 cores each side using an 18 gauge prostate biopsy gun. Two cores each were taken at the prostate apex, mid and base on each side. Cores were spaced between lateral and medial aspects. Each core was examined as placed on specimen foam as part of quality assurance test program manager to ensure a minimum 1 cm of length and minimal discontinuity. He tolerated the procedure well with minimal rectal bleeding. Blood pressure remained stable following procedure. He was able to ambulate to bathroom after 5 minutes. Printed instructions regarding antibiotic use and common adverse events from the procedure such as low-grade temperature, potential infection and bleeding were given. He understands to call the office or go to an emergency room should any of these events arise. Pathology: 12 core prostate biopsy. CPT code 50830: Transrectal ultrasound; this is a diagnostic test for evaluation of the prostate and surrounding structures, looking for abnormalities or suspicious areas worrisome for cancer CPT code 47363: Biopsy, prostate; needle or punch, single or multiple, any approach CPT code 80075: Ultrasonic guidance for needle placement (eg, biopsy, aspiration, injection, localization device), imaging supervision and interpretation
[2024-11-14] MEDS: Lidocaine HCl 1 % MPF 5 ML VIAL 10 ML SUBCUT (08:32)
[2024-11-14] MEDS: levoFLOXacin 500 MG TABLET PO (08:33)
== END 2024-11-14 06:52 | disposition home or self-care (01) ==
LOC: HO.US 06:51
PROVIDERS: PCP Internal Medicine Geriatric Medicine; Visit Provider Urology
DX: R97.20 Elevated prostate specific antigen [PSA] (principal)
CPT/HCPCS: 55700; 76942; 88305; 88344; J2003

== ENCOUNTER → 2024-11-14 06:51 | Outpatient (BNV) | payer MEDICAID, SELFPAY | PROVIDERS: PCP Internal Medicine Geriatric Medicine; Visit Provider Urology | DX: R97.20 Elevated prostate specific antigen [PSA] (principal) | CPT/HCPCS: 55700; 76872; 76942 ==

== ENCOUNTER 2024-11-28 09:42 | Outpatient (AMB) | payer MEDICAID, SELFPAY ==
--- NOTE | 2024-11-28 09:43 | MHC.OFFVIS ---
Intake Visit Reasons: Prostate biopsy results Intake Note: Patient is present for prostate Bx results pathology : 11/14/24 Urology Medication:Sildenafil, Tadalafil Antibiotic Allergy:NONE Blood Thinner:NONE Chute Builder Required: Yes Accompanied by: Self / Same As Patient Allergies No Known Allergies Allergy (Verified 11/28/24 09:44) HPI Comments Details: Jonathan is a pleasant male. He is a patient of Dr. Simeon. He presents for the following urologic issues - increasing incontinence - pelvic pressure - erectile dysfunction Telemedicine Evaluation 15 min Consultation [facility] Video Somali translation provided by qualified medical receptionist Prostate biopsy normal Recommend daily finasteride to shrink prostate Prostatitis Pelvic pressure 03/2020 TABITHA soft boggy prostate consistent with prostatitis Prescriptions provided for management PSA 04/21 5.8, 09/20 6.5 14% Prostate Biopsy 11/20 NAD Erectile dysfunction Able to obtain but could not maintain erection Failed on demand medications None known trial of daily tadalafil PFSH Surgical History History of esophagogastroduodenoscopy (EGD) Hx of colonoscopy History of surgery of head Family History Father Cancer Mother Cancer Social History Household Members: Spouse and Children Alcohol intake: current Alcohol intake frequency: does not drink Current occupational status: disabled Review of Systems Const All systems reviewed & are unremarkable except as noted in HPI and below Reports no additional complaints Resp Reports no additional complaints GI Reports no additional complaints Reports as per HPI Musc Reports no additional complaints Physical Exam Telemedicine evaluation Appropriate responses Regular breathing rate and rhythm HEENT Head: Yes normal to inspection Ears: hearing grossly normal bilaterally Eyes General: appearance normal, both eyes and all related structures Neck Neck: Yes normal visual inspection Chest Chest palpation & inspection: normal inspection of the chest Resp Effort & Inspection: normal respiratory effort and able to speak in complete sentences Telehealth Telehealth Telehealth Platform: ShowMe VIdeoke Location of provider rendering services: practice address Location of patient: address on file Patient Identification confirmed using: Name, : Yes Telehealth method: video Patient verbally consented to treatment: Yes Patient verbally consented to billing insurance company: Yes Patient informed of any privacy concerns related to visit: Yes Minutes spent on Phone/Video with Pt.: 15 Assessment & Plan Assessment & Plan (1) Prostatitis: Code(s): N41.9 - Inflammatory disease of prostate, unspecified Category: Medical Plan Six-month follow-up PSA Orders: Orders Prostate Specific Antigen 6 Months N41.9 - Inflammatory disease of prostate, unspecified Medications: New finasteride 5 mg PO DAILY 90 tabs 1RF 90 days N13.8 - Other obstructive and reflux uropathy, N40.1 - Benign prostatic hyperplasia with lower urinary tract symptoms, N41.9 - Inflammatory disease of prostate, unspecified, R33.9 - Retention of urine, unspecified Patient Instructions: This note is constructed using voice recognition software. While every effort has been made to ensure accuracy assistant general manager errors may have been included. Imaging studies, laboratory and physical exam results were discussed and reviewed in detail. No major barriers to patient understanding were identified. An opportunity to ask questions regarding the treatment plan was provided. All questions were answered. The patient expressed understanding and agreement with the above treatment plan. The patient is aware they should contact our office by phone for worsening of their current condition or the appearance of new urologic symptoms. Compliance is encouraged with any medications and followup testing that is ordered. It is a privilege to participate in the urologic care of your patient. If you have any questions or concerns regarding treatment for the above conditions, or other urologic issues, please do not hesitate to contact me. The office telephone contact is [phone]. Sincerely, Dr Devin Baxter MD, [facility] - Urology Compassionate Specialist Care for the Genitourinary System Coding Level of Care Code Tele Est Pt Level 3 (20194) Complex EM visit Add On G2211 Diagnoses Prostatitis N41.9
--- OUTSIDE RECORDS SUMMARY | 2024-11-28 10:09 | XMS_ITS | Encounter Summary ---
Author Organization [employer] Address [address] [facility] 7 [place] [address] Care Team Providers Care Supervisor Broadloom Name Role Phone Name, Clayton NUNEZ Primary Care Provider [phone] Reason for Visit * Reason Comments Med Refill Encounter Details Date Type Department Care Team ([facility] st Contact Info) Description 05/20/2023 Refill [facility] MEDICINE [address] [place], [place] [phone] Name, MD Clayton [address] [place] [address] Social History Tobacco Use Types Packs/Day Years Used Date Smoking Tobacco: Never Smokeless Tobacco: Never Alcohol Use Standard Drinks/Week Comments Never 0 (1 standard drink = 0.6 oz pur e alcohol) Housing Stability Answer Date Recorded What is your housing situation today? I have jaziel zepeda 03/21/[address] you [...] t he electric, gas, oil or water [employer] threatened to shut off services in your [...] as of this encounter Plan of Treatment Not on file documented as of this encounter Visit Diagnoses Not on filedocumented in this encounter Care Teams Supervisor Broadloom Relationship Specialty Start Date End Date Name, MD Clayton [address] [place] [address] PCP - General Family Medicine 01/12/16 documented as of this encounter
== END 2024-11-28 10:29 | disposition home or self-care (01) ==
LOC: HO.HUSH 09:43
PROVIDERS: PCP Internal Medicine Geriatric Medicine; Visit Provider Urology
DX: N41.9 Inflammatory disease of prostate, unspecified (principal)
CPT/HCPCS: 99213

== ENCOUNTER 2025-03-13 19:39 | Emergency (ER) | payer MEDICAID, SELFPAY ==
[2025-03-13 20:18] VITALS: BP 127/68; PULSE 63; RESP 16; TEMP 35.9; O2SAT 99; BMI 23.5
[2025-03-13 20:32] LABS: MANUAL DIFF FLAG NO
[2025-03-13 20:35] LABS: Hematocrit 40.3 % (42.0-52.0); Hemoglobin 13.4 g/dl (14.0-18.0); Imm Gran Abs Auto 0.07 X10*3/uL (0.00-0.03); Imm Gran Pct Auto 0.9 % (0.0-0.4); Lymphocytes Absolute Auto 2.7 X10*3/uL (1.2-4.9); Mean Corpuscular HGB Conc 33.3 g/dl (31.0-36.0); Mean Corpuscular Hemoglobin 25.8 pg (27.0-33.0); Mean Corpuscular Volume 77.5 fL (80.0-98.0); NRBC Abs Auto 0.000 X10*3/uL (0.0-0.012); NRBC Pct Auto 0.0 /100WBC (0.0-0.2); Platelet Count 249 X10*3/uL (160-400); Red Blood Count 5.20 X10*6/uL (4.60-5.80); White Blood Count 8.0 X10*3/uL (4.8-10.8)
[2025-03-13 20:49] LABS: Alanine Aminotransferase 64 U/L (0-40); Albumin Level 4.7 g/dL (3.5-5.0); Alkaline Phosphatase 139 U/L (39-117); Anion Gap 10 (12-20); Aspartate Amino Transferase 40 U/L (5-37); Blood Urea Nitrogen 24 mg/dL (9-16); Calcium 9.5 mg/dL (8.4-10.2); Carbon Dioxide 22 mmol/L (22-29); Chloride 114 mmol/L (96-108); Creatinine Clr Calc Pharmacy 65.2; Estimated Glomerular Filt Rate > 60; Lipase 62 U/L (8-78); Potassium 3.9 mmol/L (3.3-5.1); Sodium 142 mmol/L (135-145); Total Protein 7.5 g/dL (6.5-8.0)
--- OUTSIDE RECORDS SUMMARY | 2025-03-13 21:33 | XMS_ITS | Encounter Summary ---
Author Organization [employer] Address [address] [facility] 7 [place] [address] Care Team Providers Care Lathe Sander Name Role Phone Name, Clayton NUNEZ Primary Care Provider [phone] Reason for Visit * Reason Comments Med Refill Encounter Details Date Type Department Care Team ([facility] st Contact Info) Description 05/20/2023 Refill [facility] MEDICINE [address] [place], [place] [phone] Name, MD Clayton [address] [place] [address] Social History Tobacco Use Types Packs/Day Years [...] t he electric, gas, oil or water [employer] threatened to shut off services in your [...] Care Team (Late st Contact Info) Description 05/15/2025 11:30 AM EST Office Visit [facility] MEDICINE [address] [place] [address] NameClayton MD [address] [place] [address] 06/06/2025 2:00 PM EST Office Visit [facility] OPTOMETRY [address] [place] [address] Kyra Roldan, OD [address] [place] [address] documented as of this encounter Visit Diagnoses Not on filedocumented in this encounter Care Teams Lathe Sander Relationship Specialty Start Date End Date NameClayton MD [address] [place] [phone] PCP - General Family Medicine 01/12/16 documented as of this encounter
--- OUTSIDE RECORDS SUMMARY | 2025-03-13 21:34 | XMS_ITS | Clinical Summary ---
Author Organization [employer] Address [address] [facility] 7 [place] [address] Care Team Providers Care Machine Stripper Cutter Name Role Phone Name, Clayton NUNEZ Primary Care Provider [phone] Allergies No known active allergies Medications Gaviscon [...] DRINK THREE TIMES DAILY 510 g 2 08/31/202 3 Active loratadine (Claritin) 10 MG tablet Take [...] TWICE DAILY 60 tablet 1 5 Active famotidine (Pepcid) 20 MG tabletIndication s:Gastroesophage al reflux disease, unspecified whether esophagitis present TAKE 1 TABLET BY MOUTH TWICE DAILY 180 tablet 3 5 Active omeprazole (PriLOSEC) [address] capsuleIndicatio ns:Gastroesophag eal reflux disease, unspecified whether esophagitis present TAKE 1 CAPSULE BY MOUTH EVERY DAY BEFORE A MEAL 90 capsule 3 5 Active dorzolamide-surinder lol (Cosopt) 2-0.5 % ophthalmic solutionIndicati ons: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 ([facility]) 02/29/2012 Resolved Problems Problem Noted Date Diagnosed Date Resolved Date Foreign body sensation, right eye 03/04/2024 11/15/2024 Dysphagia 01/27/2017 06/21/2023 Gastroesophageal reflux disease 02/29/2012 06/21/2023 Encounters Date Type Department Care Team Description 01/31/2025 Telephone [facility] MEDICINE [address] [place] [address] Name, MD Clayton Nurse Triage 01/30/2025 Telephone [facility] MEDICINE [address] [place] [address] Clayton Simeon MD Nurse Triage 01/10/2025 Telephone [facility] MEDICINE [address] [place] [address] Jaxon Bartlett [place] february recalls 01/03/2025 1:45 PM EDT Office Visit [facility] MEDICINE [address] [place] [address] Amanda Chance, LUCERO Acute otitis externa of left ear, unspecified type (Primary Dx); Cellulitis of auricle of left ear 01/03/2025 Travel 01/03/2025 Telephone [facility] MEDICINE [address] [place] [address] Name, MD Clayton Nurse Triage from Last 3 Months Immunizations Immunization Administration Dates Next Due Hep A, Adult [...] Types Packs/Day Years Used Date Smoking Tobacco: Former Cigarettes Passive Smoke Exposure: Past Smokeless Tobacco: Former Tobacco Cessation:Counseling Given: Not Answered Alcohol Use [...] Sign Reading Time Taken Comments Blood Pressure 138/86 01/03/2025 1:48 PM EDT Pulse 74 01/03/2025 1:48 PM EDT Temperature 36.9 C (98.4 F) 01/03/2025 1:48 PM EDT Respiratory Rate 16 01/03/2025 1:48 PM EDT Oxygen Saturation 98% 01/03/2025 1:48 PM EDT Inhaled Oxygen Concentration - - Weight 71.8 kg (158 lb 4 oz) 01/03/2025 1:48 PM EDT Height 167.6 cm (5' 6 ) 01/03/2025 1:48 PM EDT Body Mass Index 25.54 01/03/2025 1:48 PM EDT Plan of Treatment Upcoming Encounters Date Type Department Care Team (Late st Contact Info) Description 05/15/2025 11:30 AM EST Office Visit [facility] MEDICINE [address] [place] [phone] Name, MD Clayton [address] [place] [address] 06/06/2025 2:00 PM EST Office Visit [facility] OPTOMETRY [address] [place] [address] Kyra Roldan, OD [address] [place] [address] Health Maintenance Due Date Last Done Comments CT Colonography 1962 Dental Prophylaxis 1962 Dental X-Ray: Bitewings 1962 FIT DNA/Cologuard 1962 FIT 1962 FOBT 1962 Sigmoidoscopy 1962 Zoster Vaccines (1 of 2) 2012 Colonoscopy 09/24/2022 09/24/2012 Colorectal Cancer Screening 09/24/2022 Dental Oral Exam 04/20/2024 10/18/2023, 08/17/2015 Influenza Vaccine (#1) 2025 , 04/11/2023, 02/23/2022, Additional history exists Depression Monitoring 03/08/2025 09/06/2024, 025 Alcohol/Substance Use Screening 09/06/2025 09/06/2024 Disability Screening 09/06/2025 09/06/2024 SDOH Screening 09/06/2025 09/06/2024 Tobacco Screening 01/03/2026 01/03/2025 Dental X-Ray: Full Mouth 10/18/2026 10/18/2023, 07/28 Lipid Panel 09/18/2029 09/18/2024, 05/30, 10/31/2022 DTaP/Tdap/Td Vaccines (3 - Td or [...] 015 COVID-19 Vaccine Completed 04/17/2024, , 09/05/2020 Pneumococcal Vaccine: 50+ Years Completed 09/06/2024 HIB Vaccines Aged Out No longer eligi ble based on patient's age to complete this topic HPV Vaccines Aged Out No longer eligi ble based on patient's age to complete this topic IPV Vaccines Aged Out No longer eligi ble based on patient's age to complete this topic Meningococcal B Vaccine Aged Out No l onger eligible based on patient's age to complete [...] Procedure Name Priority Date/Time Associated Diagnosis Comments LIPASE Routine 03/13/2025 8:27 PM EDT COMPREHENSIVE METABOLIC PANEL Routine 03/13/2025 8:27 PM EDT CBC WITH AUTO DIFFERENTIAL Routine 03/13/2025 8:27 PM EDT LIPID PANEL, STANDARD Routine 09/18/2024 11:28 AM EDT PE (physical exam), routine Elevated prostate specific antigen less than 10 ng/ml High cholesterol Screening for colon cancer Blurred vision, bilateral Encounter for immunization PANORAMIC RADIOGRAPHIC IMAGE Routine 10/18/2023 8:00 AM EDT PERIODIC ORAL EVALUATION - ESTABLISHED PATIENT Routine 10/18/2023 8:00 AM EDT HEPATITIS C AB W/REFL TO HCV RNA, QN, PCR Routine 10/06/2023 10:45 AM EDT Transaminitis HM HIV 1/2 ANTIGEN AND ANTIBODY Routine 09/08/2014 HM COLONOSCOPY Routine 09/24/2012 from Last 3 Months or Most Recently Relevant to Health Maintenance Results * (ABNORMAL) CBC auto differential (03/13/2025 8:27 PM EDT) White Blood Count 8.0 4.8 - 10.8 X10*3/uL [facility] Red Blood Count 5.20 4.60 - 5.80 X10*6/uL [facility] Hemoglobin 13.4(L) 14.0 - 18.0 g/dl [facility] Hematocrit 40.3(L) 42.0 - 52.0 % [facility] Mean Corpuscular Volume 77.5(L) 80.0 - 98.0 fL [facility] Mean Corpuscular Hemoglobin 25.8(L) 27.0 - 33.0 pg [facility] Mean Corpuscular HGB Conc 33.3 31.0 - 36.0 g/dl [facility] Red Cell Distribution Width 13.8 11.0 - 16.0 % [facility] Platelet Count 249 160 - 400 X10*3/uL [facility] Mean Platelet Volume 10.3 9.4 - 12.4 fL [facility] Neutrophils Percent Auto 54.0 45 - 73 % [facility] Imm Gran Pct Auto 0.9(H) 0.0 - 0.4 % [facility] Lymphocytes Percent Auto 34.1 20 - 40 % [facility] Monocytes Percent Auto 7.2 2 - 11 % [facility] Eosinophils Percent Auto 2.9 0 - 4 % [facility] Basophils Percent Auto 0.9 0 - 2 % [facility] NRBC Pct Auto 0.0 0.0 - 0.2 /100WBC [facility] Neutrophils Absolute Auto 4.3 2.0 - 8.3 x10*3/uL [facility] Imm Gran Abs Auto 0.07(H) 0.00 - 0.03 X10*3/uL [facility] Lymphocytes Absolute Auto 2.7 1.2 - 4.9 X10*3/uL [facility] Monocytes Absolute Auto 0.6 0.1 - 1.2 X10*3/uL [facility] Eosinophils Absolute Auto 0.2 0.0 - 0.4 X10*3/uL [facility] Basophils Absolute Auto 0.1 0.0 - 0.2 X10*3/uL [facility] NRBC Abs Auto 0.000 0.0 - 0.012 X10*3/uL [facility] 03/13/2025 8:27 PM EDT 03/13/2025 8:31 PM EDT us Generic External Data Provider LAB BLOOD ORDERAB LES Final Result Performing Organization Address City/[facility]/ZIP Co de Phone Number [facility] [address] [place] [phone] * Lipase (03/13/2025 8:27 PM EDT) Pathologist [facility] Lipase 62 8 - 78 U/L [facility] 03/13/2025 8:27 PM EDT 03/13/2025 8:31 PM EDT Generic External Data Provider LAB BLOOD ORDERAB LES Final Result Performing Organization Address City/[facility]/ZIP Co de Phone Number [facility] [address] [place] [phone] * (ABNORMAL) Comprehensive Metabolic Panel (03/13/2025 8:27 PM EDT) [facility] Sodium 142 135 - 145 mmol/L [facility] Potassium 3.9 3.3 - 5.1 mmol/L [facility] Chloride 114(H) 96 - 108 mmol/L [facility] Carbon Dioxide 22 22 - 29 mmol/L [facility] Anion Gap 10(L) 12 - 20 [facility] Urea Nitrogen (BUN) 24(H) 9 - 16 mg/dL [facility] Creatinine, Serum 1.06 0.5 - 1.4 mg/dL [facility] Creatinine Clr Calc Pharmacy 65.2 [facility] Comment:eGFR (calculated fro m the MDRD study equation) and eCrCl(calculated from the Cockcroft-Gault equation) are based ondifferent parameters and may not yield comparable results.If eCrCl result is absurd, please check patient'sheight/weight. Estimated Glomerular Filt Rate >60 [facility] Comment:Chronic Kidney Disea se: Estimated GFR < 60 mL/min/1.37u3Uktnvk Kidney Disease: Estimated GFR < 15 mL/min/1.73m2 Glucose 117(H) 60 - 115 mg/dL [facility] Calcium 9.5 8.4 - 10.2 mg/dL [facility] Bilirubin, Total 0.5 0.0 - 1.0 mg/dL [facility] Aspartate Amino Transferase 40(H) 5 - 37 U/L [facility] Alanine Aminotransferase 64(H) 0 - 40 U/L [facility] Total Protein 7.5 6.5 - 8.0 g/dL [facility] Albumin Level 4.7 3.5 - 5.0 g/dL [facility] Alkaline Phosphatase 139(H) 39 - 117 U/L [facility] 03/13/2025 8:27 PM EDT 03/13/2025 8:31 PM EDT us Generic External Data Provider LAB BLOOD ORDERAB LES Final Result Performing Organization Address City/State/[facility] Co de Phone Number [facility] [address] [place] [phone] * (ABNORMAL) Lipid Panel, Standard (09/18/2024 11:28 AM EDT) Triglycerides 181(H) <150 mg/dL [facility] Comment:Desirable Triglyceri de: less than 150 mg/dLBorderline High Triglyceride 150-199 mg/dLHigh Triglyceride: 200-499 mg/dLVery High Triglyceride: greater than or equal to 5OO mg/dL Cholesterol 164 <200 mg/dL [facility] Comment:Desirable Cholestero l: less than 200 mg/dLBorderline High Cholesterol: 200-239 mg/dLHigh Cholesterol: greater than 239 mg/dL LDL Cholesterol Calculated 94 <100 mg/dL [facility] Comment:Desirable LDL: less than 100 mg/dLNear Optimal/Above Optimal LDL: 110- 129 mg/dLBorderline High LDL: 130-159 mg/dLHigh LDL: 160-189 mg/dLVery High LDL: greater than or equal to 190 mg/dL HDL Cholesterol 34(L) >40 mg/dL [facility] Comment:Desirable HDL: great er than 40 mg/dL Note: This HDL assay may give artificially low results in patients with liver disease. Blood Venous blood specimen / Unknown 09/18/2024 11:28 AM EDT 09/18/2024 1:08 PM EDT us Clayton Simeon MD LAB BLOOD ORDERABLES Final Resul t Performing Organization Address [facility] Co de Phone Number [facility] [address] [place] [phone] * Hepatitis C Antibody with Reflex to HCV, RNA, Quantitative, Real-Time PCR (10/06/2023 10:45 AM EDT) Hepatitis C Antibody Nonreactive Nonreactive [facility] Comment:Antibodies to HCV no t detected; does not exclude early acuteHCV infection. Blood Venous blood specimen / Unknown 10/06/2023 10:45 AM EDT 10/06/2023 11:26 AM EDT us Clayton Simeon MD LAB BLOOD ORDERABLES Final Resul t Performing Organization Address City/[facility] Co de Phone Number [facility] [address] [place] [phone] * HIV 1/2 Antigen and Antibody (09/08/2014) HIV Ag/Ab Nonreactive us Clayton Simeon MD HEALTH MAINTENANCE Final Result * Colonoscopy (09/24/2012) Colonoscopy performed us George Bingham MD HEALTH MAINTENANCE Final Result from Last 3 Months or Most Recently Relevant to Health Maintenance [place] [facility] ST[facility] ADULT Care Teams Machine Stripper Cutter Relationship Specialty Start Date End Date Name, MD Clayton [address] [place] [address] PCP - General Family Medicine 01/12/16
--- OUTSIDE RECORDS SUMMARY | 2025-03-13 21:34 | XMS_ITS | Encounter Summary ---
Author Organization [employer] Address [address] [place] [address], [place] [address] Care Team Providers Care Research Associate Molecular Biology Name Role Phone Name, Clayton NUNEZ Primary Care Provider [phone] Encounter Details Date Type Department Care Team (Late Contact Info) Description 06/20/2022 Orders Only [facility] PEDS [address] [place], [place] [phone] Linda Mendoza LPN Social History Tobacco Use [...] Encounters Date Type Department Care Team (Late Contact Info) Description 05/15/2025 11:30 AM EST Office Visit [facility] MEDICINE [address] [place] [address] [phone] Name, MD Clayton [address] [place] [phone] 06/06/2025 2:00 PM EST Office Visit [facility] OPTOMETRY [address] [place] [address] Kyra Roldan, OD [address] [place], [place] [phone] documented as of this encounter Visit Diagnoses Not on filedocumented in this encounter Care Teams Research Associate Molecular Biology Relationship Specialty Start Date End Date Name, MD Clayton [address] [place] [phone] PCP - General Family Medicine 01/12/16 documented as of this encounter
--- NOTE | 2025-03-13 21:56 | ED.GENADULT ---
HPI - General Adult General Chief complaint: Nausea/Vomiting/Diarrhea Stated complaint: vomiting ? acid reflux Time Seen by Provider: 03/13/25 21:55 Source: patient Mode of arrival: ambulatory Limitations: no limitations History of Present Illness ED Provider: Dr. Diaz HPI narrative: 64-year-old male presented hospital today for evaluation of difficulty swallowing. Patient has history of hypertension. Patient has been having an issue for the past year. However has been getting worse. He is also complaining of some intermittent epigastric pain. Denies any shortness of breath or chest pain currently. Patient stated he has trouble swallowing liquid and p.o. intake. Able to swallow saliva without any issues. Related Data Home Medications ?Medication ?Instructions ?Recorded ?Confirmed perphenazine 4 mg tablet 4 mg PO BID 04/08/20 11/01/24 Previous Rx's ?Medication ?Instructions ?Recorded aluminum hydrox-magnesium carb 254 10 ml PO QID dyspepsia #355 mL 02/11/22 mg-237.5 mg/5 mL oral suspension (Gaviscon Extra Strength) tadalafil 5 mg tablet 5 mg PO DAILY sexual activity 90 05/01/24 days #90 tabs sildenafil 100 mg tablet 100 mg PO ONCE PRN sexual activity 09/30/24 30 days #30 tabs levofloxacin 500 mg tablet 500 mg PO DAILY 3 days #3 tabs 11/01/24 finasteride 5 mg tablet 5 mg PO DAILY 90 days #90 tabs 11/28/24 omeprazole 20 mg capsule,delayed 20 mg PO DAILY 30 days #30 caps 03/14/25 release ondansetron 4 mg disintegrating 4 mg PO Q8H PRN nausea and 03/14/25 tablet vomiting #14 tabs Allergies Allergy/AdvReac Type Severity Reaction Status Date / Time No Known Allergies Allergy Verified 03/13/25 20:19 Review of Systems Review of Systems: Pertinent review of systems as mentioned in HPI. All other system otherwise negative. [facility] Past Medical History [facility] Narrative: Medical history as mentioned in HPI Surgical History History of esophagogastroduodenoscopy (EGD) Hx of colonoscopy History of surgery of head Family History Family History Father Cancer Mother Cancer Social History Social History Household Members: Spouse and Children Alcohol intake: current Alcohol intake frequency: does not drink Smoked in Last 30 Days: No Use of substances other than those prescribed or required for medical reasons: No Advance Directives: No Advance Directives Information Provided: No Current occupational status: disabled Physical Exam ED Exam Exam: General: Pleasant, no distress, interacting appropriately Head: Normacephalic, atraumatic ENT: oral mucosa moist, neck supple, no tracheal deviation Cardiovascular: regular rate, regular rhythm, no murmurs, rubbing, gallops Respiratory: CTAB, no wheeze, rales, rhonchi Gastrointestinal: Soft, non distended, non tender, non guarding Extremities: No limb pain or swelling, no calf tenderness Neurological: Awake and alert, no facial droop noted Skin: Warm and dry Psychiatric: Appropriate mood and thoughts Vital Signs: Vital Signs - 24 hr 03/13/25 20:18 03/13/25 22:19 Temperature 96.7 F L Pulse Rate 63 57 Respiratory Rate 16 18 Blood Pressure 127/68 113/64 Pulse Oximetry 99 97 Oxygen Delivery Method Room Air Room Air BMI result Body Mass Index 23.5 Medications Administered Discontinued Medications Generic Name Dose Route Start Last Admin Trade Name Freq PRN Reason Stop Dose Admin Al Hydroxide/Mg Hydroxide 30 ml 03/13/25 22:41 03/13/25 23:08 Magnesium Hydrox/Alum Hydrox 30 Ml Oral.Susp PO 03/13/25 22:42 30 ml ONCE ONE Administration Lidocaine HCl 15 ml 03/13/25 22:41 03/13/25 23:08 Lidocaine Hcl Viscous 2 % 15 Ml Solution MUCOUS MEM 03/13/25 22:42 15 ml ONCE ONE Administration Ondansetron HCl 4 mg 03/13/25 22:41 03/13/25 23:08 Ondansetron Odt 4 Mg Tab.Rapdis TRANSLINGU 03/13/25 22:42 4 mg ONCE ONE Administration Medical Decision Making Medical Decision Making MDM Narrative: foreign language interpreter was used for this encounter. 64-year-old male presented hospital today for evaluation of difficulty swallowing. We will plan to give patient some Zofran and GI cocktail to see if this is gastritis in nature. I suspect patient likely has esophageal strictures. After medication we will plan to p.o. challenge the patient. On reassessment patient is feeling better. He was able to tolerate a peanut butter jelly sandwich and juice. Without any issues. We will plan to discharge patient with omeprazole, Zofran take as needed for nausea. Referral to [facility] loader office will be provided to him for follow up. An evaluation for possible esophageal strictures. Patient agrees and understands this plan. foreign language interpreter was used for this encounter. Differential Diagnosis Differential Diagnoses: The differential diagnosis associated with the presentation includes Esophageal food bolus, esophageal strictures, gastritis Lab Data MDM Lab Attestation statement: I reviewed the patient's lab results. 03/13/25 20:27 03/13/25 20:27 Labs: Lab Results 03/13/25 Range/Units 20:27 WBC 8.0 (4.8-10.8) X10*3/uL RBC 5.20 (4.60-5.80) X10*6/uL Hgb 13.4 L (14.0-18.0) g/dl Hct 40.3 L (42.0-52.0) % MCV 77.5 L (80.0-98.0) fL MCH 25.8 L (27.0-33.0) pg MCHC 33.3 (31.0-36.0) g/dl RDW 13.8 (11.0-16.0) % Plt Count 249 (160-400) X10*3/uL MPV 10.3 (9.4-12.4) fL Immature Gran % (Auto) 0.9 H (0.0-0.4) % Neut % (Auto) 54.0 (45-73) % Lymph % (Auto) 34.1 (20-40) % [place] % (Auto) 7.2 (2-11) % Eos % (Auto) 2.9 (0-4) % Baso % (Auto) 0.9 (0-2) % Lymph # (Auto) 2.7 (1.2-4.9) X10*3/uL [place] # (Auto) 0.6 (0.1-1.2) X10*3/uL Eos # (Auto) 0.2 (0.0-0.4) X10*3/uL Baso # (Auto) 0.1 (0.0-0.2) X10*3/uL Abs Immat Gran (auto) 0.07 H (0.00-0.03) X10*3/uL Absolute Neuts (auto) 4.3 (2.0-8.3) x10*3/uL Absolute Nucleated RBC 0.000 (0.0-0.012) X10*3/uL Nucleated RBC % (auto) 0.0 (0.0-0.2) /100WBC Sodium 142 (135-145) mmol/L Potassium 3.9 (3.3-5.1) mmol/L Chloride 114 H (96-108) mmol/L Carbon Dioxide 22 (22-29) mmol/L Anion Gap 10 L (12-20) BUN 24 H (9-16) mg/dL Creatinine 1.06 (0.5-1.4) mg/dL Estim Creat Clear Calc 65.2 Estimated GFR > 60 Random Glucose 117 H (60-115) mg/dL Calcium 9.5 (8.4-10.2) mg/dL Total Bilirubin 0.5 (0.0-1.0) mg/dL AST 40 H (5-37) U/L ALT 64 H (0-40) U/L Alkaline Phosphatase 139 H (39-117) U/L Total Protein 7.5 (6.5-8.0) g/dL Albumin 4.7 (3.5-5.0) g/dL Lipase 62 (8-78) U/L Discharge Plan Discharge Clinical Impression: Gastritis Qualifiers: Gastritis type: unspecified gastritis Chronicity: acute Gastritis bleeding: without bleeding Qualified Code(s): K29.00 - Acute gastritis without bleeding Trouble swallowing Qualifiers: Dysphagia type: unspecified Qualified Code(s): R13.10 - Dysphagia, unspecified Patient Disposition: Home, Self-Care Instructions: Gastritis (ED) Prescriptions: New omeprazole 20 mg capsule,delayed release(DR/EC) 20 mg PO DAILY 30 Days Qty: 30 0RF ondansetron 4 mg tablet,disintegrating 4 mg PO Q8H PRN (Reason: nausea and vomiting) Qty: 14 0RF No Action sildenafil 100 mg tablet 100 mg PO ONCE PRN (Reason: sexual activity) 30 Days Qty: 30 1RF Rx Instructions: administer 60 minutes before intended activity Gaviscon Extra Strength 254-237.5 mg/5 mL suspension 10 ml PO QID Qty: 355 0RF perphenazine 4 mg tablet 4 mg PO BID tadalafil 5 mg tablet 5 mg PO DAILY 90 Days Qty: 90 3RF levofloxacin 500 mg tablet 500 mg PO DAILY 3 Days Qty: 3 0RF Rx Instructions: take 1 tablet day before procedure, 1 tablet day of procedure and 1 tablet day after procedure finasteride 5 mg tablet 5 mg PO DAILY 90 Days Qty: 90 1RF Referrals: [facility] [Provider Group, Gastroenterology] Referral Note: Esophageal stricture eval. Clinical Impression: Trouble swallowing; Gastritis Print Language: Taiwanese
[2025-03-13 22:19] VITALS: BP 113/64; PULSE 57; RESP 18; O2SAT 97
[2025-03-13] MEDS: Lidocaine HCl Viscous 2 % 15 ML SOLUTION MUCOUS MEM (23:08)
[2025-03-13] MEDS: Magnesium Hydrox/Alum Hydrox 30 ML ORAL.SUSP PO (23:08)
[2025-03-14 01:22] VITALS: BP 113/64; PULSE 57; RESP 18; TEMP 35.9; O2SAT 97
== END 2025-03-14 01:23 | disposition home or self-care (01) ==
PROVIDERS: Emergency Provider Student in an Organized Health Care Education/Training Program; PCP Internal Medicine Geriatric Medicine
DX: K29.00 Acute gastritis without bleeding (principal); R11.2 Nausea with vomiting, unspecified; R19.7 Diarrhea, unspecified
CPT/HCPCS: 36415; 80053; 83690; 85025; 99283; 99284